=== PATIENT | female | born 1950 | race Caucasian/White ===

== ENCOUNTER 2019-10-03 20:06 | Inpatient (IN) | payer MEDICARE, MEDICAID ==
[~2019-10-03] VITALS: Ht 149.9 cm; Wt 50.0 kg
[2019-10-03 20:45] LABS: BASOPHILS % (AUTO) 0.3 % (0.0-2.0); EOSINOPHILS % (AUTO) 1.6 % (1.0-6.0); HEMATOCRIT 41.3 % (36-46); HEMOGLOBIN 13.5 g/dL (12.0-16.0); LYMPHOCYTES # (AUTO) 1.3 K/uL (1.0-4.8); LYMPHOCYTES % (AUTO) 27.5 % (22.0-44.0); MEAN CORPUSCULAR HEMOGLOBIN 29.6 pg (26.0-34.0); MEAN CORPUSCULAR HGB CONC 32.6 G/dL (31.0-37.0); MEAN CORPUSCULAR VOLUME 91 fL (80-100); MONOCYTES # (AUTO) 0.5 K/uL (0.1-1.0); MONOCYTES % (AUTO) 9.6 % (2.0-9.0); PLATELET COUNT (AUTO) 246 K/uL (150-450); RED BLOOD CELL COUNT(AUTO) 4.55 MIL/uL (4.00-5.20); RED CELL DISTRIBUTION WIDTH 13.7 % (11.5-14.5)
[2019-10-03 21:03] LABS: ANION GAP 10 mmol/L (8-16); CALCIUM, TOTAL 9.4 mg/dL (8.8-10.5); CARBON DIOXIDE 28 mmol/L (22-29); CHLORIDE 104 mmol/L (98-107); CREATININE 0.69 mg/dL (0.60-1.30); GLOMERULAR FILTR. RATE CALC > 60 mL/min (>60); GLUCOSE,RANDOM 106 mg/dL (70-110); POTASSIUM 3.4 mmol/L (3.5-5.1); SODIUM SERUM 142 mmol/L (136-145); UREA NITROGEN, BLOOD 13 mg/dL (7-18)
[2019-10-03 21:07] LABS: ALANINE AMINOTRANSFERASE 26 U/L (12-78); ALKALINE PHOSPHATASE 91 U/L (46-116); ASPARTATE AMINOTRANSFERASE 19 U/L (15-37); BILIRUBIN,TOTAL 0.4 mg/dL (0.1-1.0); TOTAL PROTEIN, SERUM 7.1 g/dL (6.4-8.2)
[2019-10-03 21:38] LABS: APPEARANCE,URINE CLOUDY (CLEAR); BILIRUBIN,URINE NEGATIVE (NEGATIVE); GLUCOSE, URINE (UA) NEGATIVE (NEGATIVE); KETONES,URINE 15 mg/dL (NEGATIVE); LEUKOCYTE ESTERASE ,URINE LARGE (NEGATIVE); NITRATE,URINE NEGATIVE (NEGATIVE); OCCULT BLOOD,URINE MODERATE (NEGATIVE); PH,URINE 5.5 (5.0-8.0); PROTEIN,URINE TRACE (NEGATIVE); UROBILINOGEN,URINE 0.2 mg/dL (<=1.0)
[2019-10-03 21:41] LABS: AMPHET/METH SCREEN,URINE NEGATIVE (NEGATIVE); BARBITURATE SCREEN, URINE NEGATIVE (NEGATIVE); BENZODIAZEPINES SCREEN,URINE NEGATIVE (NEGATIVE); CANNABINOID SCREEN,URINE NEGATIVE (NEGATIVE); COCAINE SCREEN,URINE NEGATIVE (NEGATIVE); METHADONE SCREEN, URINE NEGATIVE (NEGATIVE); OPIATE SCREEN,URINE NEGATIVE (NEGATIVE)
[2019-10-03 21:42] LABS: PHENCYCLIDINE SCREEN,URINE NEGATIVE (NEGATIVE)
[2019-10-03 21:43] LABS: BACTERIA,URINE Few /HPF (None Seen); CALCIUM OXALATE CRYSTALS,UR Many /LPF (None Seen); SQUAMOUS EPITHELIAL CELL,UR Moderate /LPF (None Seen); WBC,URINE 26-50 /HPF (0-5)
[2019-10-03] MEDS ORDERED: POTASSIUM CHLORIDE 10% 40 MEQ/30 ML LIQUID UDCUP PO ONE (22:00)
[2019-10-03] MEDS ORDERED: CEPHALEXIN MONOHYDRATE 500 MG CAPSULE PO ONE (22:00)
[2019-10-03] MEDS ORDERED: LORazepam 2 MG TABLET PO ONE (22:00)
[2019-10-03] MEDS ORDERED: OLANZapine 5 MG RAPDIS TABLET PO PRN (22:45)
[2019-10-03] MEDS ORDERED: LORazepam 2 MG TABLET PO PRN (22:45)
[2019-10-03] MEDS ORDERED: ZOLPIDEM TARTRATE 10 MG TABLET PO PRN (22:45)
[2019-10-04] MEDS ORDERED: INFLUENZA VIRUS VACCINE QVS 2019-20 (3YR+)/PF 60 MCG/0.5 ML SYRINGE IM ONE (01:30)
[2019-10-04] MEDS ORDERED: PNEUMOCOCCAL VACCINE POLYVALENT 0.5 ML VIAL [PPSV23] IM ONE (01:30)
[2019-10-04] MEDS ORDERED: PETROLATUM,WHITE 28 GM JELLY TP PRN (07:15)
[2019-10-04] MEDS ORDERED: IBUPROFEN 400 MG TABLET PO PRN (07:15)
[2019-10-04] MEDS ORDERED: ACETAMINOPHEN 325 MG TABLET PO PRN (07:15)
[2019-10-04] MEDS ORDERED: MAGNESIUM HYDROXIDE SUSPENSION 30 ML UDCUP PO PRN (07:15)
[2019-10-04] MEDS ORDERED: GuaiFENesin/D-METHORPHAN [SUGAR-FREE] 200-20MG/10 ML SYRUP UDCUP PO PRN (07:15)
[2019-10-04] MEDS ORDERED: ONDANSETRON HCL 4 MG TABLET PO PRN (07:15)
[2019-10-04] MEDS ORDERED: LOPERAMIDE HCL 2 MG CAPSULE PO PRN (07:15)
[2019-10-04] MEDS ORDERED: MAG HYDROX/AL HYDROX/SIMETH ES 30 ML SUSPENSION UDCUP PO PRN (07:15)
[2019-10-04] MEDS ORDERED: DOCUSATE SODIUM 100 MG CAPSULE PO PRN (07:15)
[2019-10-04] MEDS ORDERED: ALBUTEROL SULFATE HFA 90 MCG/PUFF 8 GM INHALER IH PRN (07:15)
[2019-10-04] MEDS ORDERED: CloNIDine HCL 0.1 MG TABLET PO PRN (07:15)
[2019-10-04] MEDS ORDERED: NICOTINE 14 MG/24 HOUR PATCH TD PRN (07:15)
[2019-10-04 15:04] VITALS: BP 113/74
[2019-10-04 16:00] VITALS: BP 104/73
[2019-10-04] MEDS: CEPHALEXIN MONOHYDRATE 500 MG CAPSULE PO SCH ×2 (16:00→23:00)
[2019-10-05] MEDS: CEPHALEXIN MONOHYDRATE 500 MG CAPSULE PO SCH ×3 (08:00→16:00)
[2019-10-05 18:36] VITALS: BP 99/61
[2019-10-06] MEDS: CEPHALEXIN MONOHYDRATE 500 MG CAPSULE PO SCH ×4 (08:00→23:08)
[2019-10-06 09:31] VITALS: BP 126/80
[2019-10-07] MEDS: CEPHALEXIN MONOHYDRATE 500 MG CAPSULE PO SCH ×2 (08:00→16:00)
[2019-10-07] MEDS: SERTRALINE HCL 100 MG TABLET PO SCH (12:30)
[2019-10-07] MEDS: ARIPiprazole 10 MG TABLET PO SCH (12:30)
[2019-10-08] MEDS: CEPHALEXIN MONOHYDRATE 500 MG CAPSULE PO SCH ×4 (08:00→17:47)
[2019-10-08] MEDS: SERTRALINE HCL 100 MG TABLET PO SCH (08:16)
[2019-10-08] MEDS: ARIPiprazole 10 MG TABLET PO SCH (08:16)
[2019-10-09] MEDS: CEPHALEXIN MONOHYDRATE 500 MG CAPSULE PO SCH ×2 (08:00→16:00)
[2019-10-09] MEDS: SERTRALINE HCL 100 MG TABLET PO SCH (08:50)
[2019-10-09] MEDS: ARIPiprazole 10 MG TABLET PO SCH (08:50)
[2019-10-10] MEDS: ARIPiprazole 10 MG TABLET PO SCH (09:00)
[2019-10-10] MEDS: SERTRALINE HCL 100 MG TABLET PO SCH (09:00)
[2019-10-11] MEDS: SERTRALINE HCL 100 MG TABLET PO SCH (09:00)
[2019-10-11] MEDS: ARIPiprazole 10 MG TABLET PO SCH (09:00)
[2019-10-12] MEDS: SERTRALINE HCL 100 MG TABLET PO SCH (09:00)
[2019-10-12] MEDS: ARIPiprazole 10 MG TABLET PO SCH (09:00)
[2019-10-12] MEDS ORDERED: HALOPERIDOL LACTATE 5 MG/ML VIAL IM PRN (12:30)
[2019-10-13] MEDS: ARIPiprazole 10 MG TABLET PO SCH (09:00)
[2019-10-13] MEDS: SERTRALINE HCL 100 MG TABLET PO SCH (09:00)
[2019-10-14] MEDS: ARIPiprazole 10 MG TABLET PO SCH (09:12)
[2019-10-14] MEDS: SERTRALINE HCL 100 MG TABLET PO SCH (09:13)
[2019-10-15] MEDS: ARIPiprazole 10 MG TABLET PO SCH (09:13)
[2019-10-15] MEDS: SERTRALINE HCL 100 MG TABLET PO SCH (09:13)
[2019-10-16] MEDS: ARIPiprazole 10 MG TABLET PO SCH (08:14)
[2019-10-16] MEDS: SERTRALINE HCL 100 MG TABLET PO SCH (08:15)
[2019-10-17] MEDS: SERTRALINE HCL 100 MG TABLET PO SCH (08:18)
[2019-10-17] MEDS: ARIPiprazole 10 MG TABLET PO SCH ×2 (08:18→16:10)
[2019-10-18] MEDS: SERTRALINE HCL 100 MG TABLET PO SCH ×2 (08:40→08:55)
[2019-10-18] MEDS: ARIPiprazole 10 MG TABLET PO SCH ×3 (08:41→16:44)
[2019-10-18 09:25] LABS: BILIRUBIN,URINE NEGATIVE (NEGATIVE); GLUCOSE, URINE (UA) NEGATIVE (NEGATIVE); KETONES,URINE NEGATIVE (NEGATIVE); NITRATE,URINE NEGATIVE (NEGATIVE); OCCULT BLOOD,URINE NEGATIVE (NEGATIVE); PH,URINE 6.5 (5.0-8.0); PROTEIN,URINE NEGATIVE (NEGATIVE); UROBILINOGEN,URINE 0.2 mg/dL (<=1.0)
[2019-10-18 09:30] LABS: APPEARANCE,URINE SLIGHTLY CLOUDY (CLEAR); LEUKOCYTE ESTERASE ,URINE MODERATE (NEGATIVE)
[2019-10-18 09:31] LABS: BACTERIA,URINE Moderate /HPF (None Seen); RBC,URINE 0-2 /HPF (0-2); SQUAMOUS EPITHELIAL CELL,UR Moderate /LPF (None Seen)
[2019-10-18] MEDS: CEPHALEXIN MONOHYDRATE 500 MG CAPSULE PO SCH ×2 (12:17→16:44)
[2019-10-19] MEDS: SERTRALINE HCL 100 MG TABLET PO SCH (08:09)
[2019-10-19] MEDS: ARIPiprazole 10 MG TABLET PO SCH ×2 (08:09→16:14)
[2019-10-19] MEDS: CEPHALEXIN MONOHYDRATE 500 MG CAPSULE PO SCH ×3 (08:09→16:14)
[2019-10-20] MEDS: SERTRALINE HCL 100 MG TABLET PO SCH (08:00)
[2019-10-20] MEDS: CEPHALEXIN MONOHYDRATE 500 MG CAPSULE PO SCH ×3 (08:00→16:23)
[2019-10-20] MEDS: ARIPiprazole 10 MG TABLET PO SCH ×2 (08:00→16:23)
[2019-10-21] MEDS: ARIPiprazole 10 MG TABLET PO SCH ×2 (08:39→16:14)
[2019-10-21] MEDS: CEPHALEXIN MONOHYDRATE 500 MG CAPSULE PO SCH ×3 (08:39→16:14)
[2019-10-21] MEDS: SERTRALINE HCL 100 MG TABLET PO SCH (08:39)
[2019-10-22] MEDS: ARIPiprazole 10 MG TABLET PO SCH ×2 (08:20→16:15)
[2019-10-22] MEDS: SERTRALINE HCL 100 MG TABLET PO SCH (08:21)
[2019-10-22] MEDS: CEPHALEXIN MONOHYDRATE 500 MG CAPSULE PO SCH ×3 (08:21→16:15)
[2019-10-23] MEDS: CEPHALEXIN MONOHYDRATE 500 MG CAPSULE PO SCH (09:24)
[2019-10-23] MEDS: SERTRALINE HCL 100 MG TABLET PO SCH (09:24)
[2019-10-23] MEDS: ARIPiprazole 10 MG TABLET PO SCH ×2 (09:24→16:34)
[2019-10-24] MEDS: SERTRALINE HCL 100 MG TABLET PO SCH (08:24)
[2019-10-24] MEDS: ARIPiprazole 10 MG TABLET PO SCH ×2 (08:24→16:30)
[2019-10-25] MEDS: ARIPiprazole 10 MG TABLET PO SCH ×2 (08:41→16:19)
[2019-10-25] MEDS: SERTRALINE HCL 100 MG TABLET PO SCH (08:41)
[2019-10-26] MEDS: SERTRALINE HCL 100 MG TABLET PO SCH (08:04)
[2019-10-26] MEDS: ARIPiprazole 10 MG TABLET PO SCH ×2 (08:04→16:25)
[2019-10-27] MEDS: SERTRALINE HCL 100 MG TABLET PO SCH (09:03)
[2019-10-27] MEDS: ARIPiprazole 10 MG TABLET PO SCH ×2 (09:03→17:59)
[2019-10-28] MEDS: ARIPiprazole 10 MG TABLET PO SCH ×2 (09:47→17:03)
[2019-10-28] MEDS: SERTRALINE HCL 100 MG TABLET PO SCH (09:47)
[2019-10-29] MEDS: ARIPiprazole 10 MG TABLET PO SCH ×2 (09:34→16:54)
[2019-10-29] MEDS: SERTRALINE HCL 100 MG TABLET PO SCH (09:34)
[2019-10-30] MEDS: ARIPiprazole 10 MG TABLET PO SCH ×2 (09:08→16:43)
[2019-10-30] MEDS: SERTRALINE HCL 100 MG TABLET PO SCH (09:08)
[2019-10-30 16:31] VITALS: BP 98/53
[2019-10-31] MEDS: ARIPiprazole 10 MG TABLET PO SCH ×2 (08:40→16:59)
[2019-10-31] MEDS: SERTRALINE HCL 100 MG TABLET PO SCH (08:41)
[2019-10-31 17:34] VITALS: BP 97/55
[2019-11-01 08:10] VITALS: BP 101/69
[2019-11-01] MEDS: SERTRALINE HCL 100 MG TABLET PO SCH (09:15)
[2019-11-01] MEDS: ARIPiprazole 10 MG TABLET PO SCH ×2 (09:15→16:32)
[2019-11-02] MEDS: SERTRALINE HCL 100 MG TABLET PO SCH (08:09)
[2019-11-02] MEDS: ARIPiprazole 10 MG TABLET PO SCH ×2 (08:09→16:21)
[2019-11-02 09:22] VITALS: BP 103/55
[2019-11-03] MEDS: ARIPiprazole 10 MG TABLET PO SCH ×2 (08:33→16:21)
[2019-11-03] MEDS: SERTRALINE HCL 100 MG TABLET PO SCH (08:33)
[2019-11-03 09:41] VITALS: BP 93/64
[2019-11-03 16:12] VITALS: BP 99/60
[2019-11-04] MEDS: ARIPiprazole 10 MG TABLET PO SCH ×2 (08:28→16:27)
[2019-11-04] MEDS: SERTRALINE HCL 100 MG TABLET PO SCH (08:28)
[2019-11-04 11:42] LABS: APPEARANCE,URINE CLEAR (CLEAR); BILIRUBIN,URINE NEGATIVE (NEGATIVE); GLUCOSE, URINE (UA) NEGATIVE (NEGATIVE); KETONES,URINE NEGATIVE (NEGATIVE); NITRATE,URINE NEGATIVE (NEGATIVE); OCCULT BLOOD,URINE NEGATIVE (NEGATIVE); PROTEIN,URINE NEGATIVE (NEGATIVE); UROBILINOGEN,URINE 0.2 mg/dL (<=1.0)
[2019-11-04 11:49] LABS: LEUKOCYTE ESTERASE ,URINE TRACE (NEGATIVE)
[2019-11-04 11:50] LABS: BACTERIA,URINE None Seen /HPF (None Seen); RBC,URINE None Seen /HPF (0-2); SQUAMOUS EPITHELIAL CELL,UR Rare /LPF (None Seen); WBC,URINE 0-2 /HPF (0-5)
[2019-11-04 17:12] VITALS: BP 90/73
[2019-11-05 08:21] VITALS: BP 99/66
[2019-11-05] MEDS: SERTRALINE HCL 100 MG TABLET PO SCH (08:56)
[2019-11-05] MEDS: ARIPiprazole 10 MG TABLET PO SCH ×2 (08:56→16:26)
[2019-11-05 16:59] VITALS: BP 101/61
[2019-11-06] MEDS: SERTRALINE HCL 100 MG TABLET PO SCH (08:44)
[2019-11-06] MEDS: ARIPiprazole 10 MG TABLET PO SCH ×2 (08:44→16:30)
[2019-11-06 12:21] VITALS: BP 114/65
[2019-11-06 16:33] VITALS: BP 92/58
[2019-11-07] MEDS: ARIPiprazole 10 MG TABLET PO SCH ×2 (09:05→16:29)
[2019-11-07] MEDS: SERTRALINE HCL 100 MG TABLET PO SCH (09:05)
[2019-11-08] MEDS: ARIPiprazole 10 MG TABLET PO SCH ×2 (09:01→16:01)
[2019-11-08] MEDS: SERTRALINE HCL 100 MG TABLET PO SCH (09:02)
[2019-11-08 16:18] VITALS: BP 93/60
[2019-11-09] MEDS: ARIPiprazole 10 MG TABLET PO SCH ×2 (08:37→16:26)
[2019-11-09] MEDS: SERTRALINE HCL 100 MG TABLET PO SCH (08:37)
[2019-11-09 10:32] VITALS: BP 105/68
[2019-11-09 16:19] VITALS: BP 95/77
[2019-11-10] MEDS: ARIPiprazole 10 MG TABLET PO SCH ×2 (08:30→16:18)
[2019-11-10] MEDS: SERTRALINE HCL 100 MG TABLET PO SCH (08:30)
[2019-11-10 11:12] VITALS: BP 113/72
[2019-11-10 16:23] VITALS: BP 102/59
[2019-11-11 08:13] VITALS: BP 91/58
[2019-11-11] MEDS: ARIPiprazole 10 MG TABLET PO SCH ×2 (08:35→15:59)
[2019-11-11] MEDS: SERTRALINE HCL 100 MG TABLET PO SCH (08:35)
[2019-11-11 16:20] VITALS: BP 96/67
[2019-11-12] MEDS: ARIPiprazole 10 MG TABLET PO SCH ×2 (09:18→16:17)
[2019-11-12] MEDS: SERTRALINE HCL 100 MG TABLET PO SCH (09:18)
[2019-11-12 09:22] VITALS: BP 127/76
[2019-11-12 16:49] VITALS: BP 119/63
[2019-11-13] MEDS: ARIPiprazole 10 MG TABLET PO SCH ×2 (08:12→16:11)
[2019-11-13] MEDS: SERTRALINE HCL 100 MG TABLET PO SCH (08:13)
[2019-11-13 10:08] VITALS: BP 126/75
[2019-11-13] MEDS ORDERED: SERT100T12 PO (13:28)
[2019-11-13] MEDS ORDERED: ARIP10TA8 PO (13:28)
== END 2019-11-13 16:20 | disposition home or self-care (01) | DRG 885 ==
LOC: EMS 20:13 → 3EC 10-04 00:30
PROVIDERS: ADMIT Psychiatry & Neurology Child & Adolescent Psychiatry; ATTEND Psychiatry & Neurology Child & Adolescent Psychiatry
DX: F31.2 Bipolar disorder, current episode manic severe with psychotic features (principal); N39.0 Urinary tract infection, site not specified; R45.851 Suicidal ideations; E87.6 Hypokalemia; F17.200 Nicotine dependence, unspecified, uncomplicated; K59.00 Constipation, unspecified; Z91.14 Patient's other noncompliance with medication regimen; Z79.899 Other long term (current) drug therapy; Z28.21 Immunization not carried out because of patient refusal
CPT/HCPCS: 84132; 87086; G0480; J1630